=== PATIENT | female | born 1990 | race Two or more races ===

== ENCOUNTER 2017-12-27 16:21 | Emergency (ER) | payer MEDICAID ==
[~2017-12-27] VITALS: Ht 170.2 cm; Wt 108.9 kg
[~2017-12-27 16:21] MED LIST: CIPROFLOXACIN500 M2 ORAL; IBUPROFEN600 MG ORAL; LORATADINE10 M2 PO; MECLIZINE HCL25 MG ORAL; NAPROSYN500 M1 ORAL; NKM; NORCO 5-325 TA1 EAC1 ORAL; NORCO 5-325 TA1 EACH ORAL; ZANTAC150 MG ORAL
[2017-12-27] MEDS ORDERED: Acetaminophen 500mg (ES) tab ORAL ONE (16:30)
[2017-12-27] MEDS ORDERED: Methocarbamol 500mg tab ORAL ONE (16:30)
[2017-12-27] MEDS ORDERED: LIDOCAINE700 M1 TP (16:44)
[2017-12-27] MEDS ORDERED: TYLENOL EXTRA500 MG ORAL (16:44)
[2017-12-27] MEDS ORDERED: ROBAXIN500 MG PO (16:44)
--- NOTE | 2017-12-27 16:44 | Emergency Room Report ---
History of Present Illness General Chief Complaint: Back Pain-No Injury Source: Patient Present Illness HPI 27-year-old female patient presents ER complaining of back pain for the past 2 weeks. Reports history of back pains for the past several years intermittently. Denies recent injury. Denies bowel or bladder incontinence. Denies history of drug abuse. reports has not seen primary care doctor follow- up with orthopedic or physical therapy for treatment of pain symptoms. Reports "sits a lot" at work and thinks that contributes to her pain. denies other acute symptoms at this time. denies radiation of pain. Denies fever, chest pain , shortness of breath, abdominal pain. denies dysuria, hematuria. Reports last menstrual period just ended, was normal for her. Denies history of kidney stones. denies history of cancer or surgery. Allergies: Coded Allergies: No Known Allergies (Unverified , 08/09/13) Patient History Past Medical History: see triage record Last Menstrual Period: 12/21/17 Reviewed Nursing Documentation: PMH: Agreed; PSxH: Agreed Nursing Documentation-PMH Past Medical History: No Stated History Review of Systems All Other Systems: negative except mentioned in HPI Physical Exam Vital Signs Date Time Temp Pulse Resp B/P (MAP) Pulse Ox O2 Delivery O2 Flow Rate FiO2 12/27/17 16:27 98.4 79 18 141/79 97 Room Air 98.4 Sp02 EP Interpretation: reviewed, normal General Appearance: well appearing, no apparent distress, alert, GCS 15, non- toxic Head: normocephalic, atraumatic Eyes: bilateral eye normal inspection, bilateral eye PERRL Neck: full range of motion, no bony tend Respiratory: lungs clear, normal breath sounds, no rhonchi, no respiratory distress, no accessory muscle use, no wheezing, speaking full sentences Cardiovascular #1: regular rate, rhythm, no edema Musculoskeletal: back normal, digits/nails normal, gait/station normal, normal range of motion, other - No bony tenderness, no step-off, tender - Mild tenderness over bilateral lumbosacral region Neurologic: alert, oriented x3, responsive, motor strength/tone normal, SLR negative, sensory intact Psychiatric: mood/affect normal Skin: no rash Medical Decision Making PA Attestation Dr. Chávez is my supervising Physician whom patient management has been discussed with. Diagnostic Impression: Primary Impression: Back pain Additional Impression: Urinary tract infection ER Course Pt presents to ED c/o back pain. DDX considered but are not limited to sprain, strain, cauda equina, UTI, . Low suspicion for cauda equina, no bowel or bladder incontinence or retention. VITAL SIGNS are WNL, patient is afebrile Ordered pain medication, labs. Ordered UA to rule out infection. ER COURSE: Pain medication provided. patient reports no recent injury or trauma, full range of motion, no radiation of pain, negative SLR, does not require imaging at this time. and advised patient on stretching and exercise, weight loss to help relief symptoms. Patient on proper posture. Instructed patient to perform exercises to strengthen muscles and help back posture. UA equivocal, shows positive leukocyte esterase, WBCs, many epithelial cells, probable UTI, provide antibiotic treatment. Urine negative Discussed results and treatment with patient. Informed patient may be contributing to back pain. Followup with pain management and/or PT. Request referral from PCP. Followup with PCP for further MRI and/or CT imaging as needed. patient ambulating independently, without difficulty. Patient OK to be DISCHARGED home. DISCHARGE: -Rx provided for Tylenol -Rx provided for Lidocaine patch -Rx provided for Robaxin. SE may cause drowsiness, do not take prior to drinking , driving, or operating Heavy machinery. -Rx provided for Keflex for UTI At this time pt. is stable for d/c to home. At this time patient is resting comfortably, in no acute distress, nontoxic appearing, smiling and talking without difficulty. Will provide printed patient care instructions, and any necessary prescriptions. Patient instructed to follow with primary care provider for further treatment and referral as needed. Care plan and follow up instructions have been discussed with the patient prior to discharge. Patient reports understanding and agreement to treatment plan. Patient questions asked and answered. ER precautions given, patient instructed to return to ER immediately for any new or worsening of symptoms. - Please note that this Emergency Department Report was dictated using in[employer]par[employer] shoe designer and maker technology software, occasionally this can lead to erroneous entry secondary to interpretation by the dictation equipment. Labs Test 12/27/17 17:10 Urine Color Pale yellow Urine Appearance Clear Urine pH 6.5 (4.5-8.0) Urine Specific [place] 1.015 (1.005-1.035) Urine Protein Negative (NEGATIVE) Urine Glucose (UA) Negative (NEGATIVE) Urine Ketones Negative (NEGATIVE) Urine Occult Blood 5+ (NEGATIVE) Urine Nitrite Negative (NEGATIVE) Urine Bilirubin Negative (NEGATIVE) Urine Urobilinogen Normal MG/DL (0.0-1.0) Urine Leukocyte Esterase 1+ (NEGATIVE) Urine RBC 15-20 /HPF (0 - 2) Urine WBC 5-10 /HPF (0 - 2) Urine Squamous Epithelial Cells Few /LPF (NONE/OCC) Urine Bacteria Few /HPF (NONE) Urine HCG, Qualitative Negative (NEGATIVE) Last Vital Signs Date Time Temp Pulse Resp B/P (MAP) Pulse Ox O2 Delivery O2 Flow Rate FiO2 12/27/17 16:27 98.4 79 18 141/79 97 Room Air 98.4 Disposition: HOME, SELF-CARE Condition: Stable Scripts Cephalexin* (KEFLEX*) 500 Mg Capsule 500 MG ORAL EVERY 12 HOURS, #14 CAP 0 Refills Prov: Lamberto Mazariegos 12/27/17 Lidocaine (Lidocaine) 1 Each Adh..patch 700 MG TP DAILY for 7 Days, #7 PATCH Prov: Lamberto Mazariegos 12/27/17 Methocarbamol* (ROBAXIN*) 500 Mg Tablet 500 MG PO TID, #21 TAB 0 Refills Prov: Lamberto Mazariegos 12/27/17 Acetaminophen* (TYLENOL EXTRA STRENGTH*) 500 Mg Tablet 500 MG ORAL Q8H PRN for Prn Headache/Temp > 101, #30 TAB 0 Refills Prov: Lamberto Mazariegos 12/27/17 Patient Instructions: Back Exercises, [id number], Back Pain, Adult, Urinary Tract Infection, [id number] Additional Instructions: Patient instructed to follow up with primary care provider 3-5 and discuss further referral to physical therapy, orthopedics and discuss further imaging at that time. Patient instructed on rest, ice and heat. Do not take muscle relaxant prior to drinking, driving, or operating heavy machinery. Take medications as directed. Patient questions asked and answered. ER precautions given, patient instructed to return to ER immediately for any new or worsening of symptoms. Lamberto Mazariegos Dec 27, 2017 16:44
[2017-12-27 17:00] VITALS: BP_SYST 129; BP_SYST 141; BP_DIAS 79; BP_DIAS 87
[2017-12-27 17:38] LABS: APPEARANCE,URINE CLEAR; BILIRUBIN, URINE NEGATIVE (NEGATIVE); COLOR,URINE PALE YELLOW; GLUCOSE, URINE (UA) NEGATIVE (NEGATIVE); KETONES,URINE NEGATIVE (NEGATIVE); LEUKOCYTE ESTERASE ,URINE 1+ (NEGATIVE); NITRITE,URINE NEGATIVE (NEGATIVE); PH,URINE 6.5 (4.5-8.0); PROTEIN,URINE NEGATIVE (NEGATIVE); UROBILINOGEN,URINE NORMAL MG/DL (0.0-1.0)
[2017-12-27] MEDS ORDERED: CEPHALEXIN500 MG ORAL (18:02)
== END 2017-12-27 18:15 | disposition home or self-care (01) ==
LOC: EMR 18:02
DX: M54.5 Low back pain (principal); N39.0 Urinary tract infection, site not specified
CPT/HCPCS: 81003; 81025; 99284

== ENCOUNTER 2018-11-27 21:10 | Emergency (ER) | payer BC, MEDICAID ==
[~2018-11-27] VITALS: Ht 167.6 cm; Wt 124.3 kg
[~2018-11-27 21:10] MED LIST changes: +CEPHALEXIN500 MG ORAL; +LIDOCAINE700 M1 TP; +ROBAXIN500 MG PO; +TYLENOL EXTRA500 MG ORAL
--- NOTE | 2018-11-27 22:18 | Emergency Room Report ---
History of Present Illness General Chief Complaint: Pain Source: Patient Present Illness HPI This is a 28-year-old female with a recent history of gastric sleeve done 12 days ago. Since then she complaining of left upper quadrant pain and constipation. Pain is 8 out of 10. No fever or chills. Nausea but no vomiting. Pain is sharp and crampy. No urinary complaint. Nothing made it better. Nothing made it worse. Allergies: Coded Allergies: No Known Allergies (Unverified , 08/09/13) Patient History Past Medical History: see triage record, old chart reviewed Past Surgical History: other Pertinent Family History: none Social History: Denies: smoking Last Menstrual Period: 11/22/18 Now: No : 0 Para: 0 Immunizations: other Reviewed Nursing Documentation: PMH: Agreed; PSxH: Agreed Nursing Documentation-PMH Past Medical History: No Stated History Review of Systems Eye: Denies: eye pain, blurred vision ENT: Denies: ear pain, nose congestion, throat swelling Respiratory: Denies: cough, shortness of breath Cardiovascular: Denies: chest pain, palpitations Gastrointestinal: Reports: abdominal pain; Denies: diarrhea, nausea, vomiting Musculoskeletal: Denies: back pain, joint pain Skin: Denies: rash Neurological: Denies: headache, numbness Endocrine: Denies: increased thirst, increased urine Hematologic/Lymphatic: Denies: easy bruising All Other Systems: negative except mentioned in HPI Physical Exam Vital Signs Date Time Temp Pulse Resp B/P (MAP) Pulse Ox O2 Delivery O2 Flow Rate FiO2 11/27/18 21:15 98.2 82 18 100 Room Air vitals unremarkable Sp02 EP Interpretation: reviewed, normal General Appearance: well appearing, no apparent distress, alert Head: normocephalic, atraumatic Eyes: bilateral eye PERRL, bilateral eye EOMI ENT: hearing grossly normal, normal pharynx Neck: full range of motion, supple, no meningismus Respiratory: chest non-tender, lungs clear, normal breath sounds Cardiovascular #1: regular rate, rhythm, no murmur Gastrointestinal: normal bowel sounds, no mass, no organomegaly, no bruit, non- distended, tenderness - right upper quadrant Musculoskeletal: back normal, gait/station normal, normal range of motion Psychiatric: mood/affect normal Skin: warm/dry Medical Decision Making Diagnostic Impression: Primary Impression: Acute pancreatitis Qualified Codes: K85.90 - Acute pancreatitis without necrosis or infection, unspecified Additional Impression: Constipation Qualified Codes: K59.00 - Constipation, unspecified ER Course Patient with abdominal pain in the left quadrant. May be secondary to pancreatitis. Lipase is slightly elevated. No history of alcohol. No evidence of any biliary disease. Patient felt better now. She does complain of feeling constipated. Stool very hard. We'll give her lactulose. No evidence of any obstruction. No evidence of any surgical abnormality. Lab Results Impression labs with elevated lipase CT/MRI/US Diagnostic Results CT/MRI/US Diagnostic Results : Imaging Test Ordered: CT abdomen and pelvis Impression negative per radiologist Last Vital Signs Date Time Temp Pulse Resp B/P (MAP) Pulse Ox O2 Delivery O2 Flow Rate FiO2 11/27/18 21:15 98.2 82 18 100 Room Air Status: improved Disposition: HOME, SELF-CARE Condition: Stable Scripts Tramadol Hcl* (ULTRAM*) 50 Mg Tablet 50 MG ORAL Q6H PRN for For Pain, #15 TAB 0 Refills Prov: Holger Easley MD 11/27/18 Lactulose (LACTULOSE*) 20 Gm/30 Ml Solution 30 ML ORAL DAILY for 240 Days, ML 0 Refills Prov: Holger Easley MD 11/27/18 Referrals: NON PHYSICIAN (PCP) Additional Instructions: Increase fluids. Follow-up with your [facility] in 2-3 days if not better. Return if worse. Holger Easley MD November 27, 2018 22:18
--- NOTE | 2018-11-27 22:25 | NUR ---
ED Nurse Note: RECIEVED PT FROM ANOTHER ROOM IN ED, PT IS AWAKE, ALERT AND ORIENTED X 4, HERE FROM HOME WITH C/O SEVERE LEFT ABDOMINAL PAIN X 1 DAY WITH NAUSEA, PT IS S/P GASTRIC SLEEVE SURGERY ON , HAS HAD F/U WITH SURGEON WITH NO COMPLICATIONS, PT DENIES FEVERS, VOMITING, OR ANY OTHER COMPLAINTS OR DISCOMFORTS, PT ASSISTED TO BATHROOM, URINE COLLECTED, WILL RESUME CARE ORDERED AND CONTINUE TO CLOSELY MONITOR.
[2018-11-27] MEDS ORDERED: Ketorolac 30mg Inj IV ONE (22:30)
[2018-11-27 22:48] LABS: APPEARANCE,URINE CLEAR; BILIRUBIN, URINE NEGATIVE (NEGATIVE); COLOR,URINE PALE YELLOW; GLUCOSE, URINE (UA) NEGATIVE (NEGATIVE); KETONES,URINE 4+ (NEGATIVE); LEUKOCYTE ESTERASE ,URINE 1+ (NEGATIVE); NITRITE,URINE NEGATIVE (NEGATIVE); PH,URINE 6 (4.5-8.0); PROTEIN,URINE NEGATIVE (NEGATIVE); UROBILINOGEN,URINE NORMAL MG/DL (0.0-1.0)
[2018-11-27 22:48] LABS: BASOPHILS % (AUTO) 1.6 % (0.0-2.0); EOSINOPHILS % (AUTO) 2.8 % (0.0-3.0); HEMATOCRIT 40.7 % (37.0-47.0); HEMOGLOBIN 13.6 G/DL (12.0-16.0); LYMPHOCYTES % (AUTO) 28.4 % (20.0-45.0); MEAN CORPUSCULAR VOLUME 80 FL (80-99); MONOCYTES % (AUTO) 8.1 % (1.0-10.0); NEUTROPHILS % (AUTO) 59.1 % (45.0-75.0); PLATELET COUNT 349 K/UL (150-450); RED BLOOD COUNT 5.06 M/UL (4.20-5.40); RED CELL DISTRIBUTION WIDTH 14.2 % (11.6-14.8); WHITE BLOOD COUNT 10.8 K/UL (4.8-10.8)
[2018-11-27 22:57] LABS: ANION GAP 12 mmol/L (5-15); BLOOD UREA NITROGEN 10 mg/dL (7-18); CALCIUM 9.8 MG/DL (8.5-10.1); CARBON DIOXIDE 26 MMOL/L (21-32); CHLORIDE 98 MMOL/L (98-107); CREATININE 0.8 MG/DL (0.55-1.30); POTASSIUM 3.3 MMOL/L (3.5-5.1); SODIUM 136 MMOL/L (136-145)
[2018-11-27 22:59] LABS: ALANINE AMINOTRANSFERASE 38 U/L (12-78); ALBUMIN 3.8 G/DL (3.4-5.0); ALBUMIN/GLOBULIN RATIO 0.7 (1.0-2.7); ALKALINE PHOSPHATASE 72 U/L (46-116); ASPARTATE AMINO TRANSFERASE 26 U/L (15-37); BILIRUBIN,TOTAL 0.4 MG/DL (0.2-1.0)
[2018-11-27] MEDS ORDERED: Morphine Sulfate 4mg/ml Inj (IV USE ONLY) IVP ONE (23:15)
--- NOTE | 2018-11-27 23:30 | NUR ---
ED Nurse Note: PT RETURNED FROM IMAGING, MEDICATED PRIOR WITH MORPHINE, TORADOL NOT EFFECTIVE, PAIN AT 0/10, MORPHINE EFFECTIVE, NO NAUSEA OR CHANGES, WILL CONTINUE TO MONITOR WHILE WAITING FOR RESULTS.
[2018-11-27] MEDS ORDERED: LACTULOSE20 GM/301 ORAL (23:55)
[2018-11-27] MEDS ORDERED: TRAMADOL HCL50 MG ORAL (23:55)
[2018-11-28 00:30] VITALS: BP 144/81
[2018-11-28 01:00] VITALS: BP 144/81
--- NOTE | 2018-11-28 01:00 | NUR ---
ED Nurse Note: Pt cleared by health care Provider for discharge. DC instructions/prescription was given and explained to pt and verbalized understanding of teachings. All medical deviecs such as ID band removed. Pt is AAO x4, ambulatory and left with all personal belongings.
--- NOTE | 2018-11-28 09:41 | Diagnostic Imaging Report ---
Indication: Abdominal pain Technique: Continuous helical transaxial imaging of the abdomen and pelvis was obtained from the lung bases to the pubic symphysis. No intravenous contrast was administered. Coronal 2-D reformats were also obtained. Automatic Exposure Control was utilized. Total Dose length Product (DLP): 1175.[address] Dose Index Volume (CTDIvol): 19.51 mGy Comparison: none Findings: Lung bases are clear. Radiopaque densities likely sutures in the outer wall the stomach noted. Nature of the surgery unknown. No nephrolithiasis or hydronephrosis identified. No free fluid identified. Appendix is normal. Bowel gas pattern is nonobstructive. Uterus noted. Urinary bladder is nondistended. No nephrolithiasis or hydronephrosis appreciated. IMPRESSION: No acute findings [facility] has communicated the preliminary results to the Emergency Department. Their findings are largely concordant with this report. The CT scanner at [facility] is accredited by the [employer] and the scans are performed using dose optimization techniques as appropriate to a performed exam including Automatic Exposure control.
== END 2018-11-28 01:02 | disposition home or self-care (01) ==
LOC: EMR 22:01
DX: K85.90 Acute pancreatitis without necrosis or infection, unspecified (principal); K59.00 Constipation, unspecified
CPT/HCPCS: 36415; 74176; 80053; 81003; 81025; 83690; 85025; 96361; 96374; 96375; 99284; J1885; J2270

== ENCOUNTER 2020-01-04 21:11 | Emergency (ER) | payer BC, MEDICAID ==
[~2020-01-04] VITALS: Ht 165.1 cm; Wt 88.9 kg
[~2020-01-04 21:11] MED LIST changes: +LACTULOSE20 GM/301 ORAL; +TRAMADOL HCL50 MG ORAL
[2020-01-04 21:29] VITALS: BP 130/88
[2020-01-04] MEDS ORDERED: IBUPROFEN600 M1 ORAL (22:07)
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
[2020-01-04 23:19] VITALS: BP 130/88
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
== END 2020-01-04 23:19 | disposition home or self-care (01) ==
LOC: EMR 21:39
DX: S39.012A Strain of muscle, fascia and tendon of lower back, initial encounter (principal); V43.52XA Car driver injured in collision with other type car in traffic accident, initial encounter; Y92.410 Unspecified street and highway as the place of occurrence of the external cause
CPT/HCPCS: 72110; 81025; 99283